=== PATIENT | male | born 1945 | race Caucasian/White ===

== ENCOUNTER 2024-11-24 15:05 | Inpatient (IN) | payer MEDICARE, SELFPAY ==
[2024-11-24 16:04] VITALS: BP 117/69; PULSE 86; RESP 18; TEMP 36.9; O2SAT 96; BMI 23.2
--- NOTE | 2024-11-24 16:39 | HP.PCM_ITS ---
HPI - General General Date of Admission: 11/24/24 Date of Service: 11/25/24 Chief Complaint: Here for rehabilitation. HPI Narrative GRUPO ALVAREZ, is a 79 Male who presents with followin11/18/2024 Admit to [facility]. 11/18/2024 Dr. Rabago performed posterior lumbar 3-5 decompression, fusion, pedicle screws, possible cage insertion. 11/19/2024 status post L3-5 TLIF. PT/OT TCU. Shaky when up with assistance. Pain control, continue BRIGITTE drain. SCD's for dvt prophylaxis. 11/20/2024 WBC 14.1, reactive. Ferris for urinary retention, start Flomax. Oxycodone, Dilaudid for pain. 11/21/2024 Lactulose 30gm for constipation. Voiding trial in AM. Patient declined nicotine patches for tobacco abuse. 11/22/2024 Pain controlled, BM overnight. Ferris out, patient urinated. PT/OT/CM/SW for discharge planning. SCD, Lovenox for dvt prophylaxis. 11/24/2024 Admit to TCU with debility, here for rehabilitation, strengthening, prior to discharge home with . [facility] Medical History (Updated 11/24/24 @ 16:[address] Shawn Miranda MD) History of pacemaker Anxiety Depression Neuropathy GERD (gastroesophageal reflux disease) Tobacco abuse Hyperlipidemia, unspecified Coronary artery disease Sick sinus syndrome Lumbar spinal stenosis Lumbar spondylosis Debility Home Medications Medication Instructions Recorded Last Taken Type acetaminophen 325 mg tablet (Pain 650 mg PO Q6H pain ( 1-3) 11/24/24 Unknown History Reliever (acetaminophen)) epinephrine 0.3 mg/0.3 mL 0.3 mg IM Q15M PRN anaphylax is 11/24/24 Unknown History injection, auto-injector (EpiPen) gabapentin 100 mg capsule 100 mg PO TID neuropathy Unknown History lamotrigine 200 mg tablet 200 mg PO DAILY seizure 11/05 03/30 Unknown History (Lamictal) naloxone 4 mg/actuation nasal 4 mg intranasal Q3M PRN opioid 11/24/24 Unknown History spray (Narcan) overdose oxycodone 5 mg capsule 5 mg PO Q4H PRN pain (scale score 11/24/24 Unknown History 4-6) pantoprazole 40 mg tablet,delayed 40 mg PO DAILY acid reflux 11/24/24 Unknown History release pravastatin 40 mg tablet 40 mg PO DAILY cholesterol 0 11/24/24 Unknown History tizanidine 4 mg tablet 4 mg PO TID PRN muscle spast icity 11/24/24 Unknown History Allergy/AdvReac Type Severity Reaction Status Date / Time bee venom protein (honey bee) Allergy Intermediate Hives Verified 11/24/24 16:04 iodine Allergy Intermediate Hives Verified 11/24/24 16:04 adhesive tape (tape) Allergy Mild Hives Verified 11/24/24 16:04 amoxicillin AdvReac Intermediate Nausea/Vom/ Verified 11/24/24 16:04 Diarrhea Family History (Updated 11/24/24 @ 16:[address] Shawn Miranda MD) Mother Osteoarthritis Alzheimer disease Father Osteoarthritis Myocardial infarction Aunt CAD (coronary artery disease) Myocardial infarction Aunt CAD (coronary artery disease) Myocardial infarction Uncle CAD (coronary artery disease) Myocardial infarction Grandfather Lung cancer Surgical History (Updated 11/24/24 @ 16:[address] Shawn Miranda MD) History of tonsillectomy History of sinus surgery History of shoulder surgery History of meniscectomy of left knee History of total right knee replacement History of colonoscopy History of bilateral carpal tunnel release History of adenoidectomy Status post lumbar surgery Social History (Updated 11/24/24 @ 16:[address] Shawn Miranda MD) household members: spouse Smoking Status: Current every day smoker tobacco type: cigarettes Smoking packs per day: 0.5 Smoking cigarettes per day: 10.0 alcohol intake: former year quit: 1984 details: Sober for 40 years substance use type: does not use ROS Constitutional Constitutional: Reports weakness; Denies chills, fever(s) or weight gain ENT HEENT: Denies headache(s), nasal congestion or nasal discharge Cardiovascular Cardiovascular: Denies chest pain or palpitations Respiratory/Chest Respiratory/Chest: Denies cough, excessive phlegm production or shortness of breath with exertion Gastrointestinal Gastrointestinal: Denies abdominal pain, nausea or vomiting Genitourinary Genitourinary: Denies dysuria Musculoskeletal Musculoskeletal: Denies joint pain or joint swelling Integumentary Integumentary: Denies rash or wounds Neurologic Neurologic: Denies focal weakness, numbness or tingling Psychiatric Psychiatric: Denies anxiety, auditory hallucinations, depression, homicidal ideation or suicidal ideation Vital Signs Vital Signs Vital Signs: 11/24/24 16:04 Temperature 98.4 F Temperature Source Temporal Pulse Rate 86 Respiratory Rate 18 Blood Pressure 117/69 Blood Pressure Mean 85 Blood Pressure Source Monitor Blood Pressure Position Semi-Fowlers Blood Pressure Location Left Arm Pulse Ox 96 Oxygen Delivery Method Room Air Weight Weight: 73.482 kg Body Mass Index (BMI) 23.2 Physical Exam Const alert General Appearance: cooperative HEENT normocephalic Eyes PERRL and EOMs intact bilaterally Neck supple, no JVD and no carotid bruits Resp normal respiratory effort, normal air movement and clear to auscultation bilaterally Cardio regular rate and regular rhythm GI normal to inspection, nondistended, normoactive bowel sounds, non-tender and non-distended Extremity normal capillary refill General Extremity: Negative for edema Skin no rashes or lesions noted General Skin Exam: no breakdown Psych affect normal Appearance: appropriate Results Lab / Micro Data 11/25/24 06:50 11/25/24 06:50 Assessment & Plan Assessment/Plan (1) Debility: (2) Lumbar spondylosis: (3) Lumbar spinal stenosis: (4) Status post lumbar surgery: (5) Sick sinus syndrome: (6) Coronary artery disease: (7) Hyperlipidemia, unspecified: (8) Tobacco abuse: (9) GERD (gastroesophageal reflux disease): (10) Neuropathy: (11) Depression: (12) Anxiety: PLAN: Plan 79 year old male with below past medical history hospitalized for lumbar decompression surgery 11/18/[address] Rabago, admitted to TCU with debility, here for rehabilitation, strengthening, prior to discharge home with . * Debility - PT/OT. * Dysphagia - ST. * Pain - Tylenol 1000mg q8, Oxycodone 5mg q4 prn pain (6-10). * Bowel - Miralax 17gm daily, Senna/colace 2 tablets bid, Magnesium citrate 300mL daily prn. * Adult immunization - Administer pneumonia vaccine, covid vaccine, flu vaccine as appropriate. * DVT prophylaxis - Lovenox 40mg sc daily. * Neuropathy - Lamictal 200mg daily, Gabapentin 100mg tid. * Opioid prophylaxis - Narcoan 4mg q3m prn. * GERD - Pantoprazole 40mg daily. * Hyperlipidemia - Pravastatin 40mg qhs. * Muscle spasm - Tizanidine 4mg tid prn.
--- NOTE | 2024-11-24 16:40 | NURSING ---
PT REFUSING PADDED RAILS FOR SECURES.
[2024-11-24 17:30] VITALS: PULSE 86; RESP 18; O2SAT 96
[2024-11-24] MEDS: Hydrocortisone 2.5% Crm 1 APPLIC TOPICAL (21:44)
[2024-11-25 07:24] LABS: Hematocrit 37.4 % (40-54); Hemoglobin 12.5 g/dL (13.0-16.5); Immature Granulocytes Count 0.060 X10^3/uL (0.0-0.0); Mean Corp Hgb Conc 33.4 g/dL (32-36); Mean Corpuscular Volume 94.2 fL (80-94); Mean Platelet Vol. 9.9 fl (6.2-12.0); NRBC Flagged by Analyzer 0 % (0-5); Platelet Count 220 K/mm3 (150-450); RBC Distribution Width CV 12.3 % (11.6-14.6); RBC Distribution Width SD 43.2 fl (35.1-43.9); Red Blood Count 3.97 M/mm3 (4.6-6.2); White Blood Count 7.8 K/mm3 (4.4-11.0)
[2024-11-25 07:42] LABS: Anion Gap 10 (5-15); BUN 21 mg/dL (4-19); BUN/Creat Ratio 24.8 RATIO (10-20); Calcium,Total 9.0 mg/dL (7.6-11.0); Carbon Dioxide 23.6 mmol/L (21.0-32.0); Chloride 102 mmol/L (98-108); Estimated Creatinine Clearance 74.51 ml/min (50-250); Glucose 97 mg/dL (70-99); Potassium 4.4 mmol/L (3.3-5.1)
[2024-11-25] MEDS: Hydrocortisone 2.5% Crm 1 APPLIC TOPICAL (09:43)
[2024-11-25] MEDS: Tuberculin,Purif.prot.deriv. 50 TU/ML Vial 0.1 ML ID (09:47)
--- NOTE | 2024-11-25 12:20 | CASEMGMT ---
Social Work Two attempts made to see pt but pt sound asleep. Will continue to attempt. Edna Chan STONE DERRICKMAN AND RIGGER WASHER OFF
[2024-11-25 15:08] VITALS: BP 118/80; PULSE 94; RESP 16; TEMP 37.2; O2SAT 96
--- NOTE | 2024-11-25 16:29 | CHAPLAIN ---
Type of Pastoral Visit _x__ Initial Visit ___ Follow-up Visit ___ On-call Visit ___ General Patient Visit ___ Spiritual Assessment ___ Family Conference ___ Bereavement ___ Rapid Response ___ Code Blue ___ Other (describe below) Pastoral Care Referral From _x__ Patient ___ Family ___ Nurse ___ Physician ___ Stockholder ___ Leather Products Supervisor ___ Other (describe below) Sacrament/Intervention _x__ Active listening ___ Anointing ___ Mosque ___ Bereavement ___ Communion _x__ Lizbeth exploration ___ _x__ Life review _x__ Prayer ___ Reconciliation ___ Sacrament of Sick _x__ Supportive presence ___ Wedding ___ Other (describe below) Pastoral Comments patient is eager to talk about his situation and his hospital encounters; pt is very pleased with the good treatment and care of this facility; pt gives lots of life review including 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
--- NOTE | 2024-11-25 18:48 | PHA.CONS_ITS ---
Documented by User: Velasquez Casas 11/25/24 20:44 TCU RX Drug Regimen Review Subjective/Objective Subjective/Objective Subjective: TCU Admission. 79 year old male hospitalized for lumbar decompression surgery 11/18/[address] Rabago. Admitted to TCU with debility, here for rehabilitation, strengthening, prior to discharge home with . Objective: Allergies bee venom protein (honey bee) Allergy (Intermediate, Verified 11/24/24 16:04) Hives iodine Allergy (Intermediate, Verified 11/24/24 16:04) Hives adhesive tape (tape) Allergy (Mild, Verified 11/24/24 16:04) Hives amoxicillin Adverse Reaction (Intermediate, Verified 11/24/24 16:04) Nausea/Vom/Diarrhea Current Medications Generic Name Dose Route Start Last Admin Trade Name Freq PRN Reason Stop Dose Admin Acetaminophen 1,000 mg 11/24/24 22:00 11/25/24 13:57 Acetaminophen 500 Mg Tablet PO 1,000 mg Q8 DIONE Administration Enoxaparin Sodium 40 mg 11/25/24 06:00 11/25/24 09:41 Enoxaparin 40 Mg/0.4 Ml Syringe SC 40 mg DAILY@0600 DIONE Administration Gabapentin 100 mg 11/24/24 22:00 11/25/24 13:57 Gabapentin 100 Mg Capsule PO 100 mg TID DIONE Administration Hydrocortisone 1 applic 11/24/24 22:00 11/25/24 09:43 Hydrocortisone 2.5% Crm TOPICAL 1 applic BID DIONE Administration Protocol Lamotrigine 200 mg 11/25/24 10:00 11/25/24 09:42 Lamotrigine 100 Mg Tablet PO 200 mg DAILY DIONE Administration Magnesium Citrate 300 ml 11/24/24 17:00 Magnesium Citrate 300 Ml PO DAILY PRN Constipation Naloxone HCl 4 mg 11/24/24 17:37 Naloxone 2 Mg/2 Ml Syringe NASAL Q3M PRN opioid overdose Oxycodone HCl 5 mg 11/24/24 16:22 11/25/24 13:57 Oxycodone 5 Mg Tablet PO 5 mg Q4H PRN Administration Pain Score 6-10 or Pre PT/OT Pantoprazole Sodium 40 mg 11/25/24 10:00 11/25/24 09:42 Pantoprazole Sodium 40 Mg Tablet PO 40 mg DAILY DIONE Administration Polyethylene Glycol 17 gm 11/25/24 10:00 11/25/24 09:42 Polyethylene Glycol 3350 17 Gm Packet PO Not Given DAILY DIONE Pravastatin Sodium 40 mg 11/25/24 22:00 Pravastatin 40 Mg Tablet PO QHS DIONE Senna/Docusate Sodium 2 tablet 11/24/24 22:00 11/25/24 09:42 Senna/Docusate Sodium 1 Tablet PO Not Given BID DIONE Sodium Chloride 10 - 40 ml 11/24/24 16:09 0.9% Saline Lock 10 Ml Syringe IV UD PRN SALINE FLUSH Tizanidine HCl 4 mg 11/24/24 17:28 Tizanidine Hcl 2 Mg Tablet PO TID PRN muscle spasticity Tuberculin PPD 0.1 ml 12/02/24 10:00 Tuberculin,Purif.Prot.Deriv. 50 Tu/Ml Vial ID 12/02/24 10:01 X1 ONE Problem List Anxiety (Acute) Depression (Acute) Neuropathy (Acute) GERD (gastroesophageal reflux disease) (Acute) Tobacco abuse (Acute) Hyperlipidemia, unspecified (Acute) Coronary artery disease (Acute) Sick sinus syndrome (Acute) Status post lumbar surgery (Acute) Lumbar spinal stenosis (Acute) Lumbar spondylosis (Acute) Debility (Acute) Vital Signs Temp Pulse Resp BP Pulse Ox O2 Del Method 99.0 F 94 16 118/80 96 Room Air 11/25/24 15:08 11/25/24 15:08 11/25/24 15:08 11/25/24 15:08 11/25/24 15:08 11/25/24 15:08 Oxygen Delivery Method Room Air Weight: 73.482 kg Body Mass Index (BMI) 23.2 Sodium 136 mmol/L (133-145) 11/25/24 06:50 Potassium 4.4 mmol/L (3.3-5.1) 11/25/24 06:50 Chloride 102 mmol/L (98-108) 11/25/24 06:50 Carbon Dioxide 23.6 mmol/L (21.0-32.0) 11/25/24 06:50 Anion Gap 10 (5-15) 11/25/24 06:50 BUN 21 mg/dL (4-19) H 11/25/24 06:50 Creatinine 0.83 mg/dL (0.70-1.20) 11/25/24 06:50 Est GFR (MDRD) Non-Af 89 (>60) 11/25/24 06:50 BUN/Creatinine Ratio 24.8 RATIO (10-20) H 11/25/24 06:50 Glucose 97 mg/dL (70-99) 11/25/24 06:50 Assessment/Plan: 1. Pain - Tylenol 1000mg PO Q8H, Oxycodone 5mg PO Q4H PRN pain (6-10) (Last dose: 11/25 @ 1357). Please monitor pain levels, PRN medication usage, in addition to nausea/vomiting and constipation with chronic opioid use. BEERS list medication: oxycodone with a listed adverse effect of increased risk of falls/fractures and impaired motor function. Black Box Warnings: Tylenol: hepatotoxicity with over usage. Oxycodone with increased risks of serious adverse effects such as respiratory depression and withdrawal. 2. Bowel - Miralax 17g PO daily, Senna/colace 2 tablets PO BID, Magnesium citr ate 300mL PO daily PRN (No doses given at this time). Please monitor for PRN medication usage, diarrhea, constipation, and abdominal pain. Last bowel movement: 11/25/24. 3. DVT prophylaxis - Lovenox 40mg SC daily. Please monitor for DVT (redness/erythema/edema in lower limbs) and bleeding such as bleeding from the gums, dark stool, blood in the urine (pink tinged urine), and unusual bruising. 4. Neuropathy - Lamictal 200mg PO daily, Gabapentin 100mg PO TID. Please monitor for blurred vision, drowsiness, tremor, nausea, and fever. Black Box Warning for lamictal: serious rash. Please monitor rash for signs/symptoms of worsening. BEERS list medications lamictal and gabapentin: increased risk of falls and bone fractures. Please reduce fall risks. 5. Opioid prophylaxis - Narcan 4mg intranasal Q3Min PRN opioid overdose. Please monitor for AMS, somnolence, and respiratory depression. Please monitor for PRN medication use. 6. GERD - Pantoprazole 40mg PO daily. Please monitor for headache, flatulence, and abdominal pain. BEERS list medication with a listed adverse effect of increased bone fractures. Please reduce fall risks. Electrolyte levels: K: 4.4 (11/25), Ca: 9.01 (11/25), Na: 136 (11/25). 7. Hyperlipidemia - Pravastatin 40mg PO QHS. Please monitor for muscle paint, joint pain, and abdominal pain. No previous lipid panel in EMR. 8. Muscle spasm - Tizanidine 4mg PO TID PRN muscle spasms (No doses given at this time). Please monitor for PRN medication usage, dizziness, fatigue, weakness, and dry mouth. 9. Skin irritation/Rash - Hydrocortisone 2.5% cream 1 application topically BID to affected area on back. Please monitor for skin irritation and signs/symptoms of improving rash Assessment/Plan for indications treated with psychotropic medications: - Resident is not prescribed scheduled or prn psychotropic medications at the time of this drug regimen review. Medical chart and medication regimen reviewed. The following medication irregularities or issues were identified: - Please consider ordering a lipid panel with weekly labs. Date Date of Note: 11/25/24 Documented by User: Dr. Shawn Miranda MD 11/26/24 07:33 TCU RX Drug Regimen Review Provider Comments Provider responsibility Provider Comments to Recommendations by Pharmacy Agree
[2024-11-26 06:21] VITALS: BMI 22.6
[2024-11-26 08:02] VITALS: BP 120/68; PULSE 83; RESP 18; TEMP 37.3; O2SAT 93
[2024-11-26] MEDS: Hydrocortisone 2.5% Crm 1 APPLIC TOPICAL ×2 (10:38→20:15)
[2024-11-26 11:30] VITALS: PULSE 83; RESP 18; O2SAT 93
--- NOTE | 2024-11-26 16:26 | CASEMGMT ---
Social Work SW met with patient to complete initial assessment. Introduced self and role. present and pt granted permission for to remain. did interject and provide answers to most questions. SW explored Medicaid d/t some financial restraints, but pt does not qualify for [facility]. SW educated to [facility] with [facility] 11/26 and continued stay is not guaranteed with each review; provided a 3-day notice for DC. See assessment for home details. Pt is doing well and inquired about DC prior to appt 12/03 on 12/02 or if it would be beneficial to remain to follow after appt. SW to follow and get recommendations from IDT, then assist with DC planning when ready. Pt/ agreeable. SW will continue to follow for DC planning. Edna Chan MAGISTRATE JUDGE COMPUTER SYSTEMS INTEGRATOR
--- NOTE | 2024-11-26 20:16 | NURSING ---
Per patient's request, 2200 medications given at this time to promote interrupted sleep.
[2024-11-27 02:48] VITALS: PULSE 78; RESP 17; O2SAT 96
[2024-11-27 06:53] LABS: Cholesterol 133 mg/dL (<=200); Low Density Lipoprotein Calc. 74 mg/dL; Triglycerides 110 mg/dL; Very Low Density Lipoprotein 22 mg/dL (5-40); cholesterol:hdl ratio screen 3.62
[2024-11-27 08:26] VITALS: BP 91/57; PULSE 92; RESP 18; TEMP 36.9; O2SAT 94
[2024-11-27] MEDS: Hydrocortisone 2.5% Crm 1 APPLIC TOPICAL (08:28)
[2024-11-27] MEDS: Polyethylene Glycol 3350 17 GM PACKET PO (08:32)
[2024-11-27] MEDS: Senna/Docusate Sodium 1 Tablet 2 TABLET PO (08:33)
--- NOTE | 2024-11-27 09:59 | CASEMGMT ---
Social Work IDT met with patient at bedside, then via conference call for care plan meeting. Discussed patient's progress in PT/OT/SN/RDN. Educated to [facility] insurance with NRD 12/04, EDC 12/08. Provided pt/family with written communication of insurance process and copay coverage during stay. Pt has dr cummings on 12/03 and was inquiring if pt could DC prior or if he should return. Suggested for pt to remain through appt and implement any changes from appt. Pt/ agreed. Scheduled car tx training on 11/29. SW to coordinate DC needs. Will continue to follow. Edna Chan DIE BARBER MASTER WELDER
--- NOTE | 2024-11-27 12:28 | NURSING ---
Radiology Ct Technologist Note; Activity Asset: Clint Carrero is independent in his choice of daily activities. He enjoys sitting outside w/cup of coffee, History and reading. He will watch tv, plays card and has his smartphone. His will visits and bring him items in from home. Staff will remind him of weekly activities and respect his right to say no.
[2024-11-28] MEDS: Hydrocortisone 2.5% Crm 1 APPLIC TOPICAL ×2 (08:42→20:06)
[2024-11-28 10:00] VITALS: PULSE 84; RESP 16; O2SAT 95
--- NOTE | 2024-11-28 10:49 | CASEMGMT ---
Social Work SW completed BIMS () and PHQ-2 () for MDS assessment. Edna Chan TERMINAL CARMAN FLARE WORKER
[2024-11-28 16:00] VITALS: BP 123/69; PULSE 90; RESP 16; TEMP 36.8; O2SAT 95
[2024-11-29] MEDS: Hydrocortisone 2.5% Crm 1 APPLIC TOPICAL ×2 (08:51→20:34)
[2024-11-29 10:00] VITALS: PULSE 93; RESP 16; O2SAT 95
--- NOTE | 2024-11-29 10:49 | MDS.RN ---
Pain assessment for MDS complete.
[2024-11-29 13:35] VITALS: BP 111/57; PULSE 93; RESP 18; TEMP 36.8; O2SAT 95
[2024-11-30 10:27] VITALS: BP 128/76; PULSE 87; RESP 18; TEMP 36.8; O2SAT 98
[2024-11-30] MEDS: Hydrocortisone 2.5% Crm 1 APPLIC TOPICAL ×2 (10:28→19:48)
--- NOTE | 2024-11-30 11:35 | NURSING ---
Pt asking about Tamsulosin for tx of BPH that was recommend to him. Dr. Miranda updated N.O. for Tamsulosin 0.4mg Daily. Order read back.
[2024-12-01 08:15] VITALS: BP 87/53; PULSE 65; RESP 18; TEMP 36.4; O2SAT 95
--- NOTE | 2024-12-02 08:25 | NURSING ---
Dross Puller Note; MDS for 12/01/2024 Complete
[2024-12-02 08:43] LABS: Hematocrit 37.0 % (40-54); Hemoglobin 12.3 g/dL (13.0-16.5); Immature Granulocytes Count 0.040 X10^3/uL (0.0-0.0); Mean Corp Hgb Conc 33.2 g/dL (32-36); Mean Corpuscular Volume 92.7 fL (80-94); Mean Platelet Vol. 9.3 fl (6.2-12.0); NRBC Flagged by Analyzer 0 % (0-5); Platelet Count 343 K/mm3 (150-450); RBC Distribution Width CV 12.4 % (11.6-14.6); RBC Distribution Width SD 42.6 fl (35.1-43.9); Red Blood Count 3.99 M/mm3 (4.6-6.2); White Blood Count 9.0 K/mm3 (4.4-11.0)
[2024-12-02] MEDS: Senna/Docusate Sodium 1 Tablet 2 TABLET PO ×2 (09:05→18:52)
[2024-12-02 09:06] LABS: Anion Gap 9 (5-15); BUN 21 mg/dL (4-19); BUN/Creat Ratio 24.3 RATIO (10-20); Calcium,Total 9.2 mg/dL (7.6-11.0); Carbon Dioxide 24.7 mmol/L (21.0-32.0); Chloride 108 mmol/L (98-108); Estimated Creatinine Clearance 72.03 ml/min (50-250); Glucose 93 mg/dL (70-99); Potassium 4.5 mmol/L (3.3-5.1)
[2024-12-02] MEDS: Tuberculin,Purif.prot.deriv. 50 TU/ML Vial 0.1 ML ID (09:07)
[2024-12-02 09:09] VITALS: BP 110/71; PULSE 90; RESP 16; TEMP 36.9; O2SAT 94
--- NOTE | 2024-12-02 12:19 | CASEMGMT ---
Social Work Received communication from CLINICAL WRITER after car tx training with pt and . That went well and pt/ are electing to DC after appt for 12/04, and with skilled HHC. Pt voiced he used [facility] prior and would like to use again. - SW spoke with pt to follow up on finalizing DC date for 12/04. Pt confirmed [facility]. SW to place referral. Therapy identified pt needing BSC at DC. SW to coordinate. Pt appreciative. - JENNIFER sent referral to [facility] via [employer] for PT/SN. [place] confirmed they can accept, but pt's main address listed with [facility] is his son's address in [place], and requested the pt/ call into [facility] to change his address to [place] address to allow C to see pt while in [place]. - SW left VM with to update on address change and finalize DC needs. - JENNIFER [place] [facility] [place] [employer] for BSC. Plan: DC home with 12/04, [facility] PT/SN, BSC Edna Chan DIGITAL MEDIA ANALYST LEAF BLENDER
[2024-12-02 14:10] VITALS: PULSE 93; RESP 18; O2SAT 96
[2024-12-02] MEDS: Polyethylene Glycol 3350 17 GM PACKET PO (18:53)
--- NOTE | 2024-12-02 18:58 | NURSING ---
PT CALLING OUT DUE TO CONSTIPATION. PT HAS REFUSED MIRALAX AND SENOKOT FEW DAYS. GAVE HS SENOKOT EARLY AND UNSCHEDULED MIRALAX.
[2024-12-03] MEDS: Senna/Docusate Sodium 1 Tablet 2 TABLET PO ×2 (07:50→20:18)
[2024-12-03 07:53] VITALS: BP 119/70; PULSE 94; RESP 15; TEMP 36.5; O2SAT 95
--- NOTE | 2024-12-03 08:02 | DS.PCM_ITS ---
Providers Date of Admission: 11/24/24 Primary Care Physician: Dr. Corrina Rabago MD Reason For Visit: POSTERIOR DECOMPRESSION OF LUMBAR L3-L5 Diagnosis Discharge Diagnosis (1) Debility: Status: Acute Code(s): R53.81 - Other malaise (2) Lumbar spondylosis: Status: Acute Code(s): M47.816 - Spondylosis without myelopathy or radiculopathy, lumbar region (3) Lumbar spinal stenosis: Status: Acute Code(s): M48.061 - Spinal stenosis, lumbar region without neurogenic claudication (4) Status post lumbar surgery: Status: Acute Code(s): Z98.890 - Other specified postprocedural states (5) Sick sinus syndrome: Status: Acute Code(s): I49.5 - Sick sinus syndrome (6) Coronary artery disease: Status: Acute Code(s): I25.10 - Atherosclerotic heart disease of [place] coronary artery without angina pectoris (7) Hyperlipidemia, unspecified: Status: Acute Code(s): E78.5 - Hyperlipidemia, unspecified (8) Tobacco abuse: Status: Acute Code(s): Z72.0 - Tobacco use (9) GERD (gastroesophageal reflux disease): Status: Acute Code(s): K21.9 - Gastro-esophageal reflux disease without esophagitis (10) Neuropathy: Status: Acute Code(s): G62.9 - Polyneuropathy, unspecified (11) Depression: Status: Acute Code(s): F32.A - Depression, unspecified (12) Anxiety: Status: Acute Code(s): F41.9 - Anxiety disorder, unspecified Plan 79 year old male with below past medical history hospitalized for lumbar decompression surgery 11/18/[address] Rabago, admitted to TCU with debility, here for rehabilitation, strengthening, prior to discharge home with . * Debility - PT/OT. * Dysphagia - ST. * Pain - Tylenol 1000mg q8, Oxycodone 5mg q4 prn pain (6-10). * Bowel - Miralax 17gm daily, Senna/colace 2 tablets bid, Magnesium citrate 300mL daily prn. * Adult immunization - Administer pneumonia vaccine, covid vaccine, flu vaccine as appropriate. * DVT prophylaxis - Lovenox 40mg sc daily. * Neuropathy - Lamictal 200mg daily, Gabapentin 100mg tid. * Opioid prophylaxis - Narcoan 4mg q3m prn. * GERD - Pantoprazole 40mg daily. * Hyperlipidemia - Pravastatin 40mg qhs. * Muscle spasm - Tizanidine 4mg tid prn. Medications at Discharge Home Medications epinephrine 0.3 mg/0.3 mL injection, auto-injector (EpiPen) 0.3 mg IM Q15M PRN anaphylaxis 11/24/24 pantoprazole 40 mg tablet,delayed release 40 mg PO DAILY acid reflux 11/24/24 pravastatin 40 mg tablet 40 mg PO DAILY cholesterol 11/24/24 acetaminophen 500 mg tablet 1,000 mg (2 x 500 mg) PO Q8 #0 tabs 12/03/24 gabapentin 100 mg capsule 100 mg PO TID 30 days #90 caps 12/03/24 lamotrigine 100 mg tablet 200 mg (2 x 100 mg) PO DAILY 30 days #60 tabs 12/03/24 oxycodone 5 mg tablet 5 mg PO Q4H PRN Pain Score 6-10 Or Pre Pt/Ot 7 days #42 tabs 12/03/24 sennosides 8.6 mg-docusate sodium 50 mg tablet (Stimulant Laxative Plus) 2 tab PO BID 30 days #120 tabs 12/03/24 tamsulosin 0.4 mg capsule 0.4 mg PO DAILY@1730 30 days #30 caps 12/03/24 Hospital Course Operations - (See below.) Procedures None Summary of Care Provided Minutes Spent on Discharge: 35 Hospital Course: 79 year old male with below past medical history hospitalized for lumbar decompression surgery 11/18/[address] Rabago, admitted to TCU with debility, here for rehabilitation, strengthening, prior to discharge home with . Discharge home with 12/04/2024, Grant [facility] PT/SN, BSC. BSC: Patient is confined to a single room unable to safely access toilet. Patient is confined to one level of the home environment and there is no toilet on that level. Physical Exam Const alert General Appearance: cooperative HEENT normocephalic Eyes PERRL and EOMs intact bilaterally Neck supple, no JVD and no carotid bruits Resp normal respiratory effort, normal air movement and clear to auscultation bilaterally Cardio regular rate and regular rhythm GI normal to inspection, nondistended, normoactive bowel sounds, non-tender and non-distended Extremity normal capillary refill General Extremity: Negative for edema Skin no rashes or lesions noted General Skin Exam: no breakdown Psych affect normal Appearance: appropriate Weight / BMI Weight Weight: 71.412 kg Body Mass Index (BMI) 22.6 ABG / Lab / Microbiology Data 12/02/24 07:52 12/02/24 07:52 Laboratory: Laboratory Results - last 24 hr 12/02/24 07:52: WBC 9.0, RBC 3.99 L, Hgb 12.3 L, Hct 37.0 L, MCV 92.7, MCH 30.8, MCHC 33.2, RDW Std Deviation 42.6, RDW Coeff of Pamela 12.4, Plt Count 343, MPV 9.3, Immature Gran % (Auto) 0.400, Neut % (Auto) 68.7, Lymph % (Auto) 20.7, [place] % (Auto) 6.7, Eos % (Auto) 2.9, Baso % (Auto) 0.6, Absolute Neuts (auto) 6.2, Absolute Lymphs (auto) 1.86, Nucleated RBC % 0, Sodium 142, Potassium 4.5, Chloride 108, Carbon Dioxide 24.7, Anion Gap 9, BUN 21 H, Creatinine 0.84, Estim Creat Clear Calc 72.03, Est GFR (MDRD) Non-Af 89, BUN/Creatinine Ratio 24.3 H, Glucose 93, Calcium 9.2 D/C Instructions Discharge Activity: Return to Normal Activity, May Shower and Use Walker Weight Bearing Status: Weight bearing as tolerated Call your doctor if you observe: Fever of 101 or Higher, Inability to urinate, Inability to have a bowel movement, Shortness of breath, Dizziness, Fainting spells, Swelling in the ankles, Chest pain and Uncontrolled pain DC O2, CPAP, BIPAP Needs Home O2 Discharge instructions: No Additional Instructions: Discharge home with 12/04/2024, Sandro [facility] PT/SN, BSC. BSC: Patient is confined to a single room unable to safely access toilet. Patient is confined to one level of the home environment and there is no toilet on that level. Please Follow Up With: corrina rabago When: As scheduled. Meaningful Use Info Meaningful Use Meaningful Use Diagnoses (Choose all that apply): None applicable Discharge Plan Admission Admit Date/Time: 11/24/24 15:05 Primary Reason for Your Visit: Debility. Attending Provider: Shawn Miranda Chi Primary Care Provider: Corrina Rabago Instructions Additional Instructions / Restrictions: Discharge home with 12/04/2024, Sandro [facility] PT/SN, BSC. BSC: Patient is confined to a single room unable to safely access toilet. Patient is confined to one level of the home environment and there is no toilet on that level. Discharge Orders/Prescriptions Prescriptions: New acetaminophen 500 mg Tablet 1,000 mg PO Q8 Qty: 0 0RF sennosides-docusate sodium [Stimulant Laxative Plus] 8.6-50 mg Tablet 2 tab PO BID 30 Days Qty: 120 0RF gabapentin 100 mg Capsule 100 mg PO TID 30 Days Qty: 90 0RF lamotrigine 100 mg Tablet 200 mg PO DAILY 30 Days Qty: 60 0RF oxycodone 5 mg Tablet 5 mg PO Q4H PRN (Reason: Pain Score 6-10 Or Pre Pt/Ot) 7 Days Qty: 42 0RF tamsulosin 0.4 mg Capsule 0.4 mg PO DAILY@1730 30 Days Qty: 30 0RF Continued epinephrine [EpiPen] 0.3 mg/0.3 mL auto-injector 0.3 mg IM Q15M PRN (Reason: anaphylaxis) Rx Instructions: for 2 doses pantoprazole 40 mg tablet,delayed release (DR/EC) 40 mg PO DAILY pravastatin 40 mg tablet 40 mg PO DAILY Discontinued acetaminophen [Pain Reliever (acetaminophen)] 325 mg tablet 650 mg PO Q6H gabapentin 100 mg capsule 100 mg PO TID lamotrigine [Lamictal] 200 mg tablet 200 mg PO DAILY naloxone [Narcan] 4 mg/actuation spray,non-aerosol 4 mg intranasal Q3M PRN (Reason: opioid overdose) Rx Instructions: spray 1 dose into ONE nostril; alternate nostrils w each dose until help arrives oxycodone 5 mg capsule 5 mg PO Q4H PRN (Reason: pain (scale score 4-6)) tizanidine 4 mg tablet 4 mg PO TID PRN (Reason: muscle spasticity) Referrals / Follow Up: Corrina Rabago MD [Primary Care Provider, Medical] Disposition Disposition (needs filled in before D/C Order can be placed): Home Health Service
--- NOTE | 2024-12-03 12:00 | NURSING ---
Pt returned from appt with surgeon. No new orders brandon removed. Will f/u in 3 months.
[2024-12-03] MEDS: Magnesium Citrate 300 ML PO (14:05)
[2024-12-04] MEDS: Senna/Docusate Sodium 1 Tablet 2 TABLET PO (10:04)
[2024-12-04 14:41] VITALS: BP 116/58; PULSE 77; RESP 16; TEMP 36.6; O2SAT 97
--- NOTE | 2024-12-05 12:33 | MDS.RN ---
Information for the MDS was obtained from review of the clinical record, interview of resident, staff, and direct observation of resident’s care.
== END 2024-12-04 14:35 | disposition home health service (06) | DRG 561 ==
PROVIDERS: Admitting Provider Family Medicine Geriatric Medicine; PCP Neurological Surgery; Visit Provider Family Medicine Geriatric Medicine
DX: Z47.89 Encounter for other orthopedic aftercare (principal); I49.5 Sick sinus syndrome; F32.A Depression, unspecified; E78.5 Hyperlipidemia, unspecified; I25.10 Atherosclerotic heart disease of native coronary artery without angina pectoris; F41.9 Anxiety disorder, unspecified; G62.9 Polyneuropathy, unspecified; F17.210 Nicotine dependence, cigarettes, uncomplicated; K21.9 Gastro-esophageal reflux disease without esophagitis; M48.061 Spinal stenosis, lumbar region without neurogenic claudication; M47.816 Spondylosis without myelopathy or radiculopathy, lumbar region; Z98.1 Arthrodesis status; Z79.899 Other long term (current) drug therapy; Z95.0 Presence of cardiac pacemaker
CPT/HCPCS: 36415; 80048; 80061; 85025; 92610; 97110; 97116; 97162; 97166; 97530; 97535; 97802; 99406